=== PATIENT | male | born 1985 | race Caucasian/White ===

== ENCOUNTER 2019-08-01 10:27 | Inpatient (IN) | payer SELFPAY ==
[2019-08-01] MEDS ORDERED: Lorazepam 2 MG/ML VIAL ONE ×4 (10:41→14:40)
[2019-08-01 10:56] LABS: #Lymphocytes 1.5 thou/uL (1.20-3.40); #Monocytes 1.1 thou/uL (0.11-0.59); #Neutrophils 12.6 thou/uL (1.40-6.50); %Basophils 0.2 % (0.0-1.0); %Lymphocytes 9.5 % (21.0-51.0); %Monocytes 7.2 % (0.0-10.0); %Neutrophils 83.1 % (42.0-75.0); Hemoglobin 14.7 g/dL (14.0-18.0); Mean Corpuscular HGB CONC 34.2 g/dL (32.0-36.0); Mean Corpuscular Hemoglobin 32.5 pg (27.0-31.0); Mean Corpuscular Volume 95.1 fL (78.0-98.0); Mean Platelet Volume 7.1 fL (7.4-10.4); Platelet Count 311 thou/uL (130-400); RBC Distribution Width 11.8 % (11.5-14.5); Red Blood Cell (RBC) Count 4.53 mill/uL (4.70-6.10); White Blood Cell (WBC) Count 15.2 thou/uL (4.8-10.8)
[2019-08-01 11:19] LABS: Acetaminophen Less than 6.0 mcg/mL (10.0-30.0); Alcohol Less than 10 mg/dL (Less than 10); Salicylate Less than 8.0 mg/dL (15.0-30.0)
[2019-08-01 11:20] LABS: ALT (SGPT) 64 U/L (8-55); AST (SGOT) 143 U/L (5-34); Albumin 4.8 g/dL (3.5-5.0); Alcohol Less than 10 mg/dL (Less than 10); Alkaline Phosphatase 62 U/L (40-110); Anion Gap 21 mmol/L (10-20); BUN (Urea Nitrogen) 18 mg/dL (8.9-20.6); Bilirubin, Total 3.4 mg/dL (0.2-1.2); Calc. Creatinine Clearance 0 mL/min (70-130); Calcium 9.7 mg/dL (7.8-10.44); Carbon Dioxide 19 mmol/L (22-29); Chloride 101 mmol/L (98-107); Estimated GFR-MDRD Greater than 90; Globulin 2.8 g/dL (2.4-3.5); Glucose 73 mg/dL (70-105); Potassium 3.2 mmol/L (3.5-5.1); Protein, Total 7.6 g/dL (6.0-8.3); Sodium 138 mmol/L (136-145)
[2019-08-01] MEDS ORDERED: Lidocaine 1% w/Epinephrine 1:100K 20 ML VIAL ONE (12:17)
[2019-08-01 12:29] LABS: Bilirubin Negative (Negative); Blood, Urine 2+ (Negative); Clarity Clear (Clear); Glucose, Urine (Dipstick) Normal (Negative); Leukocyte Negative Leu/uL (Negative); Nitrite Negative (Negative); Protein, Urine (Dipstick) 100 mg/dL (Neg-Trace); Squamous Epithelial 0-3 HPF (0-3); Urobilinogen Normal mg/dL (Less than 2); WBC/HPF 0-3 HPF (0-3)
[2019-08-01 12:36] LABS: Amphetamine Detected (NotDetected); Barbiturates Screen Not Detected (NotDetected); Benzodiazepine Screen Not Detected (NotDetected); Cocaine Metabolite Screen Not Detected (NotDetected); Medtox Control Line Valid? VALID (VALID); Medtox Reader # READER 4; Methadone Not Detected (NotDetected); Methamphetamine Detected (NotDetected); Opiate Screen Not Detected (NotDetected); Oxycodone Screen Not Detected (NotDetected); Phencyclidine (PCP) Not Detected (NotDetected); THC/Cannabinoid Screen Not Detected (NotDetected); Tricyclic Screen Not Detected (NotDetected)
[2019-08-01] MEDS ORDERED: Bupivacaine 0.5% 10 ML VIAL ONE ×2 (12:37→13:48)
[2019-08-01 12:38] LABS: Mucous/LPF 1+ LPF (<2+)
[2019-08-01 12:39] LABS: Bacteria/HPF Rare-Few HPF (None Seen)
[2019-08-01] MEDS ORDERED: Adacel (T-DAP) 0.5 ML SYRINGE ONE (13:48)
[2019-08-01] MEDS ORDERED: Acetaminophen 325 MG TAB PO PRN ×2 (13:50→16:40)
[2019-08-01] MEDS ORDERED: Ondansetron ODT 4 MG TAB SL PRN (13:50)
[2019-08-01] MEDS ORDERED: Ondansetron PF 4 MG/2 ML Vial IVP PRN ×2 (13:50→16:40)
[2019-08-01] MEDS ORDERED: Haloperidol Lactate 5 MG/ML VIAL ONE (14:29)
[2019-08-01] MEDS ORDERED: Haloperidol Lactate 5 MG/ML VIAL SLOW IVP SCH (14:30)
[2019-08-01] MEDS ORDERED: Thiamine HCl 200 MG/2 ML VIAL IM SCH (14:45)
--- NOTE | 2019-08-01 14:48 | HP ---
PRIMARY CARE PHYSICIAN: The patient's does not have a primary care physician. CHIEF COMPLAINT: Possible suicide attempt and overdose. HISTORY OF PRESENT ILLNESS: The history of present illness is taken primarily from discussion with the ER physician as well as review of the records as the patient is currently unable to give a coherent history, likely due to his schizophrenia. Mr. Mello is a 34-year-old gentleman who was brought in to the hospital after he was reported to have a suicide attempt by cutting his arm. It is unclear who initiated the call, but apparently he was found in the [place] cold and altered. There was a large laceration on his left arm. When I asked him how he got that, he says "he put it there today," and when asked why he says because he has "a fake ," and then he goes on talking about things that the FBI got involved and they are big and powerful and they have been following him all over the place and that they wanted to put him in a maximum 16. Otherwise, the patient admits to using methamphetamine. He says that he used it a couple of days ago because he had gone outside and there were 100s of people looking at him and he went outside and they took his away. Otherwise, the history is basically incoherent and he has significant flight of ideas. REVIEW OF SYSTEMS: Essentially unobtainable due to the patient's current mental status. PAST MEDICAL HISTORY: He admits to schizophrenia. PAST SURGICAL HISTORY: He just did not answer me. ALLERGIES: UNKNOWN. SOCIAL HISTORY: He denies any smoking. He told me he drinks beers from morning to noon. He had told the ER physician he drinks about 12 to 20 beers a day. He admits to marijuana use and he admits to methamphetamine use. MEDICATIONS: He mentions Lamictal. FAMILY HISTORY: Consisted of heart disease. PHYSICAL EXAMINATION: GENERAL: He is awake and alert. He is a bit agitated, but can easily be calmed down when you distract him. He is well developed and well nourished, a little bit disheveled. He has a large blanket at the bedside in the room. VITAL SIGNS: Blood pressure was 125/85, heart rate is 124, respiratory rate of 21, and temperature is 99.1. HEENT: His pupils are equal, round, and reactive. Extraocular muscles are intact. Sclerae anicteric. Throat, he has dry mucous membranes. NECK: No adenopathy. No bruits. LUNGS: Clear to auscultation. There is no wheezing, no rales, and no rhonchi. CARDIOVASCULAR: Heart rate is tachycardic. There are no murmurs, no clicks, and no rubs. ABDOMEN: Soft, nontender, and nondistended. Positive for bowel sounds. No rebound. No guarding. EXTREMITIES: There is no clubbing or cyanosis and no edema. NEUROLOGIC: The exam is nonfocal. SKIN AND INTEGUMENT: No skin changes. No rash. LABORATORY RESULTS: White blood cell count 15.2, hemoglobin 14.7, hematocrit is 43.1, and platelet count is 311. Sodium 138, potassium 3.2, chloride is 101, CO2 is 19, BUN of 18, creatinine 0.92, and glucose is 73. Total bilirubin is 3.4, AST 143, and ALT is 64. Toxicology, alcohol level was less than 10. He did have methamphetamine and benzos, and this is positive. ASSESSMENT: This is a pleasant 34-year-old gentleman who appears to have schizophrenia, which is currently not very well controlled. I am unable to get any coherent history from him. The other concerning fact is that his heart rate is elevated. He admits to heavy drinking and this could represent alcohol withdrawal. His urine drug screen is positive for methamphetamine. He will be admitted for medical stabilization and treatment for potential alcohol withdrawal with IV fluids with a banana bag and Ativan as needed. He may also need an antipsychotic, such as Haldol or Geodon. The laceration has been sutured in the ER. We will apply an antibiotic ointment to it and he will also be placed on suicide precautions. [facility] will be consulted once he is clinically stable. Job ID: [id number]
[2019-08-01] MEDS: Sodium Chloride 0.9% 1,000 ML IV SCH ×2 (15:57→21:28)
[2019-08-01] MEDS ORDERED: Diazepam 5 MG TAB PO PRN (15:58)
[2019-08-01] MEDS ORDERED: Diazepam 5 MG TAB PO SCH (16:00)
[2019-08-01] MEDS ORDERED: cloNIDine 0.1 MG TAB PO PRN (16:40)
[2019-08-01] MEDS ORDERED: Ondansetron ODT 4 MG TAB PO PRN (16:40)
[2019-08-01] MEDS: Multivitamins, Adult 10 ML, Folic Acid 1 MG, Thiamine HCl 100 MG in Dextrose 5 %-0.45 %... IV SCH (17:45)
[2019-08-01] MEDS: Lorazepam 2 MG/ML VIAL SLOW IVP PRN (21:24)
[2019-08-02] MEDS: Haloperidol Lactate 5 MG/ML VIAL SLOW IVP PRN ×3 (00:38→17:25)
[2019-08-02 03:57] LABS: #Basophils 0.1 thou/uL (0.0-0.2); #Eosinphils 0.1 thou/uL (0.0-0.7); #Lymphocytes 2.5 thou/uL (1.20-3.40); #Monocytes 0.8 thou/uL (0.11-0.59); #Neutrophils 4.4 thou/uL (1.40-6.50); %Basophils 0.8 % (0.0-1.0); %Eosinophils 0.6 % (0.0-10.0); %Lymphocytes 31.8 % (21.0-51.0); %Monocytes 10.4 % (0.0-10.0); %Neutrophils 56.4 % (42.0-75.0); Hemoglobin 12.5 g/dL (14.0-18.0); Mean Corpuscular HGB CONC 35.2 g/dL (32.0-36.0); Mean Corpuscular Hemoglobin 33.9 pg (27.0-31.0); Mean Corpuscular Volume 96.1 fL (78.0-98.0); Mean Platelet Volume 7.4 fL (7.4-10.4); Platelet Count 238 thou/uL (130-400); RBC Distribution Width 11.6 % (11.5-14.5); White Blood Cell (WBC) Count 7.9 thou/uL (4.8-10.8)
[2019-08-02 04:18] LABS: ALT (SGPT) 49 U/L (8-55); AST (SGOT) 100 U/L (5-34); Albumin 3.7 g/dL (3.5-5.0); Alkaline Phosphatase 48 U/L (40-110); Anion Gap 10 mmol/L (10-20); BUN (Urea Nitrogen) 13 mg/dL (8.9-20.6); Bilirubin, Direct 0.3 mg/dL (0.1-0.3); Bilirubin, Total 3.9 mg/dL (0.2-1.2); Calc. Creatinine Clearance 168 mL/min (70-130); Carbon Dioxide 23 mmol/L (22-29); Chloride 108 mmol/L (98-107); Estimated GFR-MDRD Greater than 90; Glucose 83 mg/dL (70-105); Magnesium 2.2 mg/dL (1.6-2.6); Potassium 3.4 mmol/L (3.5-5.1); Protein, Total 5.8 g/dL (6.0-8.3); Sodium 138 mmol/L (136-145)
[2019-08-02] MEDS ORDERED: Potassium Chloride 20 MEQ TAB PO SCH (08:00)
[2019-08-02] MEDS ORDERED: FLU VACC QS2019-20(6MOS UP)/PF 60 MCG/0.5 ML SYRINGE IM ONE (09:00)
[2019-08-02] MEDS ORDERED: Pantoprazole 40 MG VIAL IVP SCH (09:00)
[2019-08-02] MEDS ORDERED: Prevnar 13-Val Conj/PF 0.5 ML SYRINGE IM ONE (09:00)
--- NOTE | 2019-08-02 09:02 | PDOC.HOSPP ---
- Subjective Encounter Date: 08/02/19 Encounter Time: 09:00 Subjective: Mr. Mello was seen today in follow-up of suicide attempt and methamphetamine abuse. He says he feels " anxious". He is laying in the bed with the covers over his face. He starts to breath hard, and shake a little when I began talking to him. Prior to this he was laying calmly. He asked me " what's the next step ?" - Objective Vital Signs & Weight: Vital Signs (12 hours) Temp 08/02/19 07:27 98.7 F 08/02/19 03:38 98.0 F Weight Weight 158 lb 9.6 oz Most Recent Monitor Data Heart Rate from ECG 91 NIBP 99/68 NIBP BP-Mean 78 Respiration from ECG 16 SpO2 98 I&O: 08/01/19 08/02/19 08/03/19 06:59 06:59 06:59 Intake Total 2300 Balance 2300 Result Diagrams: 08/02/19 03:21 08/02/19 03:21 Additional Labs: Accuchecks 08/01/19 10:36 POC Glucose 84 Hospitalist ROS - Medication Medications: Active Medications Generic Name Dose Route Start Last Admin Trade Name Freq PRN Reason Stop Dose Admin Haloperidol Lactate 2 mg 08/01/19 16:40 08/02/19 00:38 Haldol SLOW IVP 2 mg Q6H PRN Administration Agitation Multivitamins 10 ml/ Folic 1,011.2 mls @ 75 mls/hr 08/01/19 17:00 08/01/19 17 :45 Acid 1 mg/ Thiamine HCl 100 mg IV 1,011.2 mls / Dextrose/Sodium Chloride Q24HR CLEM Administration Lorazepam 1 mg 08/01/19 16:40 08/01/19 21:24 Ativan SLOW IVP 1 mg Q4H PRN Administration Anxiety/Agitation - Exam Eye: PERRL Heart: RRR Respiratory: CTAB, no wheezes, no rales, no ronchi, normal chest expansion, no tachypnea, normal percussion Gastrointestinal: soft, non-tender, non-distended, normal bowel sounds, no palpable masses, no hepatomegaly Extremities: no cyanosis, no edema Hosp A/P (1) Suicide attempt Status: Acute (2) Methamphetamine intoxication Code(s): F15.929 - OTHER STIMULANT USE, UNSP WITH INTOXICATION, UNSPECIFIED Status: Acute (3) Methamphetamine abuse Code(s): F15.10 - OTHER STIMULANT ABUSE, UNCOMPLICATED Status: Acute (4) Schizophrenia Code(s): F20.9 - SCHIZOPHRENIA, UNSPECIFIED Status: Acute - Plan * Methamphetamine Intoxication- heis heart rate has improved. It will become elevated when he interacts with people. He does not appear to have alcohol withdrawal symptoms * Will continue IV fluids * Encourage oral intake * Monitor a bit longer * [facility] evaluation soon
[2019-08-02] MEDS: Lorazepam 2 MG/ML VIAL SLOW IVP PRN ×3 (09:04→17:25)
[2019-08-02] MEDS ORDERED: cloNIDine 0.1 MG TAB PO PRN (09:16)
[2019-08-02 15:28] VITALS: TEMP 99.3
[2019-08-02] MEDS: Multivitamins, Adult 10 ML, Folic Acid 1 MG, Thiamine HCl 100 MG in Dextrose 5 %-0.45 %... IV SCH (19:07)
--- NOTE | 2019-08-03 13:23 | DIS ---
DATE OF ADMISSION: 08/01/2019 DATE OF DISCHARGE: 08/02/2019 DISCHARGE DISPOSITION: [facility]. DISCHARGE DIAGNOSES: 1. Suicide attempt. 2. Schizophrenia, decompensated. 3. Methamphetamine abuse. 4. Alcohol abuse. DISCHARGE MEDICATIONS: None. CODE STATUS: Full code. ALLERGIES: NO KNOWN DRUG ALLERGIES. HOSPITAL COURSE: Mr. Mello is a pleasant 34-year-old gentleman who was admitted to the hospital after he was found by police confused and also noted that he had a laceration on his left arm. He was brought into the emergency room, where he was found to be tachycardic and urine drug screen was positive for methamphetamine and amphetamine. The patient's speech was a bit pressured and disorganized. The patient indicated that he did try to harm himself with a laceration on the arm. This was sutured in the ER and the patient was monitored overnight to make sure that he was medically stable. There was some initial concern for alcohol withdrawal, but his symptoms improved dramatically overnight. Therefore, the tachycardia was likely related to the methamphetamine intoxication. He was evaluated by [facility] and it was recommended that he undergo inpatient psychiatric treatment. The patient was agreeable to this and he had an uneventful transfer to the [facility]. Job ID: [id number]
== END 2019-08-02 19:14 | DRG 897 ==
LOC: ERS 10:27 → IMCU/EMU 14:21
PROVIDERS: ADMIT Internal Medicine; ATTEND Internal Medicine
PROC: 0HQCXZZ Repair Left Upper Arm Skin, External Approach (ICD-10-PCS; principal; 2019-08-01)
PROC: HZ2ZZZZ Detoxification Services for Substance Abuse Treatment (ICD-10-PCS; 2019-08-01)
DX: F15.929 Other stimulant use, unspecified with intoxication, unspecified (principal); T14.91XA Suicide attempt, initial encounter; F20.9 Schizophrenia, unspecified; F12.90 Cannabis use, unspecified, uncomplicated; S41.112A Laceration without foreign body of left upper arm, initial encounter; X78.9XXA Intentional self-harm by unspecified sharp object, initial encounter; F10.10 Alcohol abuse, uncomplicated
CPT/HCPCS: 12002; 36415; 36416; 80048; 80053; 80076; 80306; 80307; 81003; 81015; 83735; 85025; 90471; 90715; 93005; 96361; 96374; 96375; 96376; C9113; J1630; J2060; J3411; J3490; J7042

== ENCOUNTER 2023-10-22 08:12 | Inpatient (IN) | payer SELFPAY ==
[2023-10-22] MEDS ORDERED: NOREPINEPHRINE 8 MG/250 ML-D5W 250 ML ONE (08:20)
[2023-10-22] MEDS ORDERED: Fentanyl CADD 100 ML IV SCH (08:30)
[2023-10-22 08:39] LABS: Actual Bicarbonate (HCO3a) 16.1 mEq/L (22-28); Analyzer IN Cardio ER; Base Excess (BEa) -10.5 mEq/L (-2.0 to +3.0); CO2 Tension 38.4 mmHg (35.0-45.0); Calcium, Ionized (arterial) 1.17 mmol/L (1.12-1.30); Carboxyhemoglobin (COHb) 0.3 gm% (0.0-3.0); Hematocrit-ABG 47 % (42.0-52.0); Hemoglobin (Hb) 16.1 g/dL (14.0-18.0); O2 Tension (PaO2), arterial 157.6 mmHg (80.0-100.0); Potassium - ABG Lab 4.13 mmol/L (3.70-5.30); Puncture Site RRA; pH, Arterial 7.241 (7.35-7.45)
[2023-10-22] MEDS ORDERED: Sodium Bicarb 50 MEQ/50 ML Abboject 8.4% SYRINGE ONE (08:54)
[2023-10-22] MEDS ORDERED: Ipratropium/Albuterol 3 ML NEB NEB PRN (09:15)
[2023-10-22] MEDS ORDERED: Acetaminophen 650 MG Suppository PR PRN (09:15)
[2023-10-22] MEDS ORDERED: Ventilator Sedation Protocol 1 EACH FS SCH (09:15)
[2023-10-22] MEDS ORDERED: Midazolam HCl 2 mg/2 ml Vial SLOW IVP PRN (09:31)
[2023-10-22 09:44] LABS: Hematocrit 44.1 % (42.0-52.0); Mean Corpuscular Hemoglobin 32.9 pg (27.0-31.0); Mean Corpuscular Volume 96.7 fL (78.0-98.0); Mean Platelet Volume 10.7 fL (7.4-10.4); Platelet Count 122 10x3/uL (130-400); RBC Distribution Width 14.2 % (11.5-14.5); Red Blood Cell (RBC) Count 4.56 mill/uL (4.70-6.10)
[2023-10-22] MEDS ORDERED: DISCONTINUE PREVIOUS NARCOTIC PAIN MEDICATIONS AND BENZODIAZEPINES FS SCH (09:45)
[2023-10-22] MEDS ORDERED: Propofol BOLUS 1,000 MG/100 ML VIAL IV PRN (09:45)
[2023-10-22] MEDS ORDERED: Morphine 2 MG/ML VIAL SLOW IVP PRN (09:45)
[2023-10-22 09:55] LABS: ALT (SGPT) 156 U/L (8-55); AST (SGOT) 337 U/L (5-34); Albumin 3.2 g/dL (3.5-5.0); Alkaline Phosphatase 54 U/L (40-110); Anion Gap 15 mmol/L (10-20); BUN (Urea Nitrogen) 9 mg/dL (8.9-20.6); Bilirubin, Total 1.9 mg/dL (0.2-1.2); Calc. Creatinine Clearance 0 mL/min (70-130); Calcium 7.4 mg/dL (7.8-10.44); Carbon Dioxide 14 mmol/L (22-29); Chloride 120 mmol/L (98-107); Estimated GFR 58; Globulin 2.7 g/dL (2.4-3.5); Glucose 285 mg/dL (70-105); Potassium 4.1 mmol/L (3.5-5.1); Protein, Total 5.9 g/dL (6.0-8.3); Sodium 145 mmol/L (136-145)
[2023-10-22 10:02] LABS: Bacteria/HPF None Seen HPF (None Seen); Bilirubin Negative (Negative); CAUTI Indications for Culture Alt mental st,lethar; Glucose, Urine (Dipstick) Normal (Negative); Ketone, Urine Negative (Negative); Leukocyte Negative Leu/uL (Negative); Nitrite Negative (Negative); Protein, Urine (Dipstick) 100 mg/dL (Neg-Trace); Squamous Epithelial None Seen HPF (0-3); Urobilinogen Normal mg/dL (Less than 2); pH, Urine 5.5 (5.0-9.0)
[2023-10-22 10:05] LABS: CK (CPK) 10293 U/L (30-200)
[2023-10-22 10:05] LABS: Blood, Urine 3+ (Negative); Clarity Cloudy (Clear)
[2023-10-22 10:06] LABS: Urine Culture Reflex Yes Yes
[2023-10-22] MEDS: Dextrose 5 %-0.45 % NaCl 1,000 ML IV SCH (10:14)
[2023-10-22 10:31] LABS: Anisocytosis MODERATE=16-30 cells HPF (0-5); Band 6 % (5-11); Burr Cells SLIGHT = 2-5 cells HPF (0-1); Eosinophils 1 % (0-10); Large Platelets 0.9 % (0-5); Lymphocytes 13 % (21-51); Macrocytosis SLIGHT = 6-15 cells HPF (0-5); Metamyelocyte 2 % (0-0); Monocytes 18 % (0-10); Myelocyte 1 % (0-0); Neutrophil 57 % (42-75); Nucleated RBC (Manual Ct) 12 % (0); Platelet Adequacy Comment Platelets Decreased; Polychromasia MODERATE = 3-4 cells HPF (0-2); Reactive Lymphocytes 1 % (0-10)
[2023-10-22 10:43] LABS: Critical Call Chem Troponin I NUR.KR7 @1042; Troponin I 3.969 ng/mL (< 0.028)
[2023-10-22] MEDS ORDERED: Glucagon 1 MG/ML KIT IM PRN (10:44)
[2023-10-22] MEDS ORDERED: Insulin Regular, Human 100 UNIT/ML 10 ML VIAL SC PRN (10:44)
[2023-10-22] MEDS ORDERED: Dextrose 5% in Water 1,000 ML IV PRN (10:44)
[2023-10-22 10:46] LABS: Prothrombin Time 22.8 sec (12.0-14.7)
[2023-10-22 10:47] LABS: PTT 43.4 sec (22.9-36.1)
[2023-10-22] MEDS: Sodium Chloride 0.45% 1,000 ML IV SCH (12:00)
[2023-10-22] MEDS: Sodium Bicarb 50 mEq/50 ML VIAL IVP SCH ×2 (12:10→16:31)
[2023-10-22] MEDS ORDERED: Midazolam In 0.9 % NaCl/PF 100 ML IVPB SCH (12:15)
[2023-10-22 12:26] LABS: Lactic Acid 3.5 mmol/L (0.5-2.2)
[2023-10-22 12:43] LABS: Troponin I 5.495 ng/mL (< 0.028)
[2023-10-22 13:51] VITALS: BMI 28.8
[2023-10-22 14:16] LABS: Anion Gap 17 mmol/L (10-20); BUN (Urea Nitrogen) 13 mg/dL (8.9-20.6); Calc. Creatinine Clearance 83 mL/min (70-130); Calcium 7.6 mg/dL (7.8-10.44); Carbon Dioxide 16 mmol/L (22-29); Chloride 119 mmol/L (98-107); Estimated GFR 65; Glucose 186 mg/dL (70-105); Potassium 2.3 mmol/L (3.5-5.1); Sodium 150 mmol/L (136-145)
[2023-10-22] MEDS ORDERED: Electrolyte Replacement Protocol 1 EACH FS SCH (14:27)
[2023-10-22] MEDS: Enoxaparin 80 MG (0.8 mL) SYRINGE SC SCH ×2 (14:33→20:33)
[2023-10-22] MEDS: Potassium Chloride 40 MEQ in Premix 1 BAG IVPB SCH (15:11)
[2023-10-22] MEDS: 1/2 NS w/Potassium 20 mEq 1,000 ML IV SCH (15:50)
[2023-10-22] MEDS: Lactated Ringer's 500 ML IV SCH (16:31)
[2023-10-22 18:56] LABS: Critical Call Chem Troponin I NUR.CLW1 @1856; Troponin I 5.586 ng/mL (< 0.028)
[2023-10-22] MEDS: Famotidine/PF 20 mg/2ml Vial SLOW IVP SCH (20:33)
[2023-10-22 20:38] LABS: Lactic Acid 5.8 mmol/L (0.5-2.2)
[2023-10-22 20:43] LABS: Anion Gap 22 mmol/L (10-20); BUN (Urea Nitrogen) 14 mg/dL (8.9-20.6); Calc. Creatinine Clearance 78 mL/min (70-130); Carbon Dioxide 13 mmol/L (22-29); Chloride 118 mmol/L (98-107); Estimated GFR 60; Glucose 103 mg/dL (70-105); Potassium 4.4 mmol/L (3.5-5.1); Sodium 149 mmol/L (136-145)
[2023-10-22] MEDS: Lactated Ringer's 1,000 ML IV SCH (20:58)
[2023-10-22] MEDS: Sodium Bicarbonate 150 MEQ in Dextrose 5% in Water 1,000 ML IV SCH (21:15)
[2023-10-22] MEDS: Lorazepam 2 MG/ML VIAL SLOW IVP PRN (21:27)
[2023-10-22] MEDS: Propofol 1,000 MG/100 ML VIAL IV PRN (21:50)
[2023-10-23 00:19] LABS: Lactic Acid 4.7 mmol/L (0.5-2.2)
[2023-10-23] MEDS: Lactated Ringer's 500 ML IV SCH (01:04)
[2023-10-23 01:42] LABS: Anion Gap 21 mmol/L (10-20); BUN (Urea Nitrogen) 16 mg/dL (8.9-20.6); Calc. Creatinine Clearance 84 mL/min (70-130); Calcium 7.7 mg/dL (7.8-10.44); Carbon Dioxide 14 mmol/L (22-29); Chloride 117 mmol/L (98-107); Estimated GFR 65; Glucose 122 mg/dL (70-105); Sodium 149 mmol/L (136-145)
[2023-10-23] MEDS: Potassium Chloride 40 MEQ in Premix 1 BAG IVPB SCH ×2 (02:49→17:08)
[2023-10-23] MEDS: Potassium Bicarbonate/Cit Ac 20 MEQ TAB PER TUBE SCH (02:50)
[2023-10-23] MEDS: Sodium Bicarbonate 150 MEQ in Dextrose 5% in Water 1,000 ML IV SCH (02:55)
[2023-10-23] MEDS ORDERED: Potassium Chloride 20 MEQ in Premix 1 BAG IVPB SCH (03:00)
[2023-10-23 05:54] LABS: Hemoglobin 17.9 g/dL (14.0-18.0); Mean Corpuscular HGB CONC 35.1 g/dL (32.0-36.0); Mean Corpuscular Hemoglobin 32.6 pg (27.0-31.0); Mean Corpuscular Volume 92.9 fL (78.0-98.0); Mean Platelet Volume 10.7 fL (7.4-10.4); RBC Distribution Width 14.6 % (11.5-14.5); Red Blood Cell (RBC) Count 5.49 mill/uL (4.70-6.10)
[2023-10-23 06:10] LABS: Lactic Acid 3.3 mmol/L (0.5-2.2)
[2023-10-23 06:20] LABS: Band 10 % (5-11); Lymphocytes 6 % (21-51); Metamyelocyte 2 % (0-0); Monocytes 3 % (0-10); Neutrophil 79 % (42-75); Nucleated RBC (Manual Ct) 6 % (0); Platelet Adequacy Comment Significant Decrease; Polychromasia SLIGHT = 2-3 cells HPF (0-2); Smudge Cells 9.1 %
[2023-10-23 06:27] LABS: Platelet Count 23 10x3/uL (130-400)
[2023-10-23 06:40] LABS: ALT (SGPT) 1049 U/L (8-55); AST (SGOT) 1767 U/L (5-34); Albumin 2.7 g/dL (3.5-5.0); Alkaline Phosphatase 59 U/L (40-110); Anion Gap 16 mmol/L (10-20); BUN (Urea Nitrogen) 20 mg/dL (8.9-20.6); Bilirubin, Total 4.1 mg/dL (0.2-1.2); Calc. Creatinine Clearance 98 mL/min (70-130); Calcium 6.7 mg/dL (7.8-10.44); Carbon Dioxide 22 mmol/L (22-29); Chloride 112 mmol/L (98-107); Estimated GFR 71; Globulin 2.3 g/dL (2.4-3.5); Glucose 159 mg/dL (70-105); Potassium 3.1 mmol/L (3.5-5.1); Sodium 147 mmol/L (136-145)
[2023-10-23 07:21] LABS: Actual Bicarbonate (HCO3a) 23.7 mEq/L (22-28); Base Excess (BEa) 0.7 mEq/L (-2.0 to +3.0); CO2 Tension 34.2 mmHg (35.0-45.0); Calcium, Ionized (arterial) 0.98 mmol/L (1.12-1.30); Carboxyhemoglobin (COHb) 0.3 gm% (0.0-3.0); Hematocrit-ABG 56 % (42.0-52.0); Hemoglobin (Hb) 19.2 g/dL (14.0-18.0); O2 Tension (PaO2), arterial 71.3 mmHg (80.0-100.0); Potassium - ABG Lab 3.14 mmol/L (3.70-5.30); pH, Arterial 7.459 (7.35-7.45)
[2023-10-23 07:23] LABS: Puncture Site RRA
[2023-10-23 07:30] LABS: HBCM Index 0.09 S/CO (0-0.79); HBsAg Index 0.22 S/CO (0-0.99); Hep A IgM AB NONREACTIVE (NonReactive); Hep A IgM S/CO 0.17 S/CO (0-0.79); Hep B Surf Ag NONREACTIVE S/CO (NonReactive); Hep C IgG Ab NONREACTIVE S/CO (NonReactive); Hep C Index 0.08 S/CO (0-0.79); Hepatitis B Core IgM Abs NONREACTIVE S/CO (NonReactive)
[2023-10-23 07:31] LABS: INR-International Normal Ratio 3.7; Prothrombin Time 37.3 sec (12.0-14.7)
[2023-10-23 07:32] LABS: PTT 46.6 sec (22.9-36.1)
[2023-10-23 07:35] LABS: Platelet Count 24 10x3/uL (130-400)
[2023-10-23 07:40] LABS: Hematocrit 51.9 % (42.0-52.0); Hemoglobin 18.3 g/dL (14.0-18.0); Mean Corpuscular HGB CONC 35.3 g/dL (32.0-36.0); Mean Corpuscular Hemoglobin 33.5 pg (27.0-31.0); Mean Corpuscular Volume 95.1 fL (78.0-98.0); Mean Platelet Volume 12.1 fL (7.4-10.4); Platelet Count 22 10x3/uL (130-400); RBC Distribution Width 14.7 % (11.5-14.5); Red Blood Cell (RBC) Count 5.46 mill/uL (4.70-6.10)
[2023-10-23] MEDS: Potassium Chloride 20 MEQ in Premix 1 BAG IVPB SCH (07:56)
[2023-10-23 08:04] LABS: Fibrinogen 64 mg/dL (253-463)
[2023-10-23 08:05] LABS: D-Dimer Test Greater than 20.00 mcg/mL (0.27-0.43)
[2023-10-23 08:07] LABS: Anisocytosis MODERATE=16-30 cells HPF (0-5); Band 19 % (5-11); Lymphocytes 4 % (21-51); Macrocytosis MODERATE=16-30 cells HPF (0-5); Monocytes 2 % (0-10); Neutrophil 75 % (42-75); Nucleated RBC (Manual Ct) 4 % (0); Platelet Adequacy Comment Significant Decrease; Reactive Lymphocytes 1 % (0-10)
[2023-10-23] MEDS: Aspirin 300 MG Suppository PR SCH (08:59)
[2023-10-23 09:22] LABS: CK (CPK) 38219 U/L (30-200)
[2023-10-23 09:24] LABS: ALT (SGPT) 1412 U/L (8-55); AST (SGOT) 2247 U/L (5-34); Albumin 2.7 g/dL (3.5-5.0); Alkaline Phosphatase 62 U/L (40-110); Anion Gap 19 mmol/L (10-20); BUN (Urea Nitrogen) 20 mg/dL (8.9-20.6); Bilirubin, Total 4.3 mg/dL (0.2-1.2); Calc. Creatinine Clearance 100 mL/min (70-130); Calcium 6.5 mg/dL (7.8-10.44); Carbon Dioxide 18 mmol/L (22-29); Chloride 113 mmol/L (98-107); Estimated GFR 73; Globulin 2.2 g/dL (2.4-3.5); Glucose 149 mg/dL (70-105); Potassium 3.3 mmol/L (3.5-5.1); Protein, Total 4.9 g/dL (6.0-8.3); Sodium 147 mmol/L (136-145)
[2023-10-23] MEDS: Sodium Chloride 0.45% 1,000 ML IV SCH (10:59)
[2023-10-23] MEDS: Vecuronium 10 MG VIAL IV PRN (11:02)
[2023-10-23 14:32] LABS: Hematocrit 49.6 % (42.0-52.0); Hemoglobin 17.4 g/dL (14.0-18.0)
[2023-10-23] MEDS: Dextrose 50% Abboject 50 ML SYRINGE SLOW IVP PRN (18:10)
[2023-10-23] MEDS: D5 1/2 NS w/20 mEq KCL 1,000 ML IV SCH (18:41)
[2023-10-23 21:57] LABS: Actual Bicarbonate (HCO3a) 21.3 mEq/L (22-28); Base Excess (BEa) -1.3 mEq/L (-2.0 to +3.0); Calcium, Ionized (arterial) 0.91 mmol/L (1.12-1.30); Carboxyhemoglobin (COHb) 0.9 gm% (0.0-3.0); Hematocrit-ABG 51 % (42.0-52.0); Hemoglobin (Hb) 17.3 g/dL (14.0-18.0); Potassium - ABG Lab 3.21 mmol/L (3.70-5.30); pH, Arterial 7.455 (7.35-7.45)
[2023-10-23 21:58] LABS: O2 Tension (PaO2), arterial 44.5 mmHg (80.0-100.0)
[2023-10-23 21:59] LABS: Puncture Site LBA
[2023-10-23 22:44] LABS: Hematocrit 48.8 % (42.0-52.0); Hemoglobin 16.8 g/dL (14.0-18.0)
[2023-10-23] MEDS: Sterile Water 10 ML ONE (22:58)
[2023-10-24] MEDS: Vecuronium 10 MG VIAL IV PRN (00:46)
[2023-10-24] MEDS: Sterile Water 10 ML ONE ×2 (00:52→08:03)
[2023-10-24] MEDS: Albumin 25% 25 GM (100 mL) BOT IVPB SCH (01:47)
[2023-10-24 02:09] LABS: Actual Bicarbonate (HCO3a) 22.2 mEq/L (22-28); Base Excess (BEa) -3.7 mEq/L (-2.0 to +3.0); CO2 Tension 43.1 mmHg (35.0-45.0); Calcium, Ionized (arterial) 0.91 mmol/L (1.12-1.30); Carboxyhemoglobin (COHb) 0.3 gm% (0.0-3.0); Hematocrit-ABG 53 % (42.0-52.0); O2 Tension (PaO2), arterial 65.4 mmHg (80.0-100.0); Potassium - ABG Lab 3.56 mmol/L (3.70-5.30)
[2023-10-24 02:10] LABS: ALV-art Gradient 593.725 mmHg (0-20); Puncture Site LBA
[2023-10-24] MEDS: Calcium Chloride 13.6 MEQ in Sodium Chloride 0.9% 100 ML IVPB SCH (02:49)
[2023-10-24] MEDS: Sodium Bicarb 50 mEq/50 ML VIAL IVP SCH (02:51)
[2023-10-24] MEDS: Magnesium Sulfate In Water 4 GM in Premix 1 BAG IVPB SCH (06:00)
[2023-10-24] MEDS ORDERED: Sodium Bicarb 50 MEQ/50 ML Abboject 8.4% SYRINGE ONE (07:30)
[2023-10-24] MEDS: Sodium Bicarb 50 MEQ/50 ML Abboject 8.4% SYRINGE IVP SCH ×3 (07:30→08:37)
[2023-10-24] MEDS ORDERED: EPINEPHrine 1 MG/10 ML Abboject SYRINGE ONE (07:30)
[2023-10-24] MEDS: Phenylephrine 40 MG in Sodium Chloride 0.9% 250 ML 250 ML IVPB SCH (07:40)
[2023-10-24 07:45] LABS: AST (SGOT) Greater than 4202 U/L (5-34); Albumin 2.5 g/dL (3.5-5.0); Alkaline Phosphatase 56 U/L (40-110); Anion Gap 18 mmol/L (10-20); BUN (Urea Nitrogen) 24 mg/dL (8.9-20.6); Bilirubin, Total 5.2 mg/dL (0.2-1.2); Calc. Creatinine Clearance 94 mL/min (70-130); Calcium 6.1 mg/dL (7.8-10.44); Carbon Dioxide 20 mmol/L (22-29); Chloride 111 mmol/L (98-107); Estimated GFR 68; Globulin 2.2 g/dL (2.4-3.5); Glucose 100 mg/dL (70-105); Magnesium 1.3 mg/dL (1.6-2.6); Potassium 3.5 mmol/L (3.5-5.1); Protein, Total 4.7 g/dL (6.0-8.3); Sodium 145 mmol/L (136-145)
[2023-10-24 07:51] LABS: Lactic Acid 6.3 mmol/L (0.5-2.2)
[2023-10-24] MEDS: EPINEPHrine 4 MG in Dextrose 5% in Water 250 ML IVP SCH (07:54)
[2023-10-24] MEDS: Potassium Chloride 20 MEQ in Premix 1 BAG IVPB SCH (07:56)
[2023-10-24] MEDS: NOREPINEPHRINE 8 MG/250 ML-D5W 250 ML IVPB PRN (08:00)
[2023-10-24] MEDS: EPINEPHrine 1 MG/10 ML Abboject SYRINGE IVP SCH ×3 (08:17→08:37)
[2023-10-24 08:28] LABS: Actual Bicarbonate (HCO3a) 19.5 mEq/L (22-28); Base Excess (BEa) -8.2 mEq/L (-2.0 to +3.0); CO2 Tension 47.8 mmHg (35.0-45.0); Calcium, Ionized (arterial) 1.04 mmol/L (1.12-1.30); Carboxyhemoglobin (COHb) 0.4 gm% (0.0-3.0); Hematocrit-ABG 48 % (42.0-52.0); Hemoglobin (Hb) 16.4 g/dL (14.0-18.0); O2 Tension (PaO2), arterial 45.2 mmHg (80.0-100.0); Potassium - ABG Lab 3.39 mmol/L (3.70-5.30); Puncture Site Arterial Line; pH, Arterial 7.229 (7.35-7.45)
[2023-10-24 08:37] LABS: ALT (SGPT) 3734 U/L (8-55)
[2023-10-24] MEDS: Hydrocortisone Sod Succ/PF 100 mg/2 ml Vial IVP SCH (08:54)
[2023-10-24] MEDS: Hydrocortisone Sod Succ/PF 100 mg/2 ml Vial ONE (08:55)
[2023-10-24 09:44] LABS: #Basophils 0.02 10x3/uL (0.0-0.2); #Monocytes 0.07 10x3/uL (0.11-0.59); #Neutrophils 4.79 10x3/uL (1.40-6.50); %Basophils 0.4 % (0.0-1.0); %Lymphocytes 4.8 % (21.0-51.0); %Monocytes 1.4 % (0.0-10.0); %Neutrophils 92.6 % (42.0-75.0); Hematocrit 43.6 % (42.0-52.0); Hemoglobin 15.5 g/dL (14.0-18.0); Mean Corpuscular HGB CONC 35.6 g/dL (32.0-36.0); Mean Corpuscular Hemoglobin 33.9 pg (27.0-31.0); Mean Corpuscular Volume 95.4 fL (78.0-98.0); Mean Platelet Volume 14.1 fL (7.4-10.4); Platelet Count 45 10x3/uL (130-400); RBC Distribution Width 15.5 % (11.5-14.5); Red Blood Cell (RBC) Count 4.57 mill/uL (4.70-6.10); White Blood Cell (WBC) Count 5.17 10x3/uL (4.8-10.8)
[2023-10-24] MEDS: Phenylephrine 40 MG/NS 250 ML 40 MG in Premix 1 BAG IVPB SCH (09:49)
[2023-10-24] MEDS: Phenylephrine 10 MG/ML VIAL ONE (09:50)
[2023-10-24] MEDS: Sodium Bicarbonate 150 MEQ in Dextrose 5% in Water 1,000 ML IV SCH (09:52)
[2023-10-24] MEDS: Vasopressin 20 UNITS, Admixture Fee 1 EACH in Sodium Chloride 0.9% 50 ML IV SCH (10:00)
[2023-10-24 10:26] VITALS: BP 116/43
[2023-10-24 11:41] VITALS: BMI 31.9
[2023-10-24 13:07] VITALS: TEMP 97.5
== END 2023-10-24 13:39 | disposition expired | DRG 917 ==
LOC: ERS 08:12 → ERHOLD 09:09 → CCU 11:32
PROVIDERS: ADMIT Family Medicine; ATTEND Family Medicine
PROC: 02HV33Z Insertion of Infusion Device into Superior Vena Cava, Percutaneous Approach (ICD-10-PCS; principal; 2023-10-22)
PROC: 0DH67UZ Insertion of Feeding Device into Stomach, Via Natural or Artificial Opening (ICD-10-PCS; 2023-10-22)
PROC: 4A133R1 Monitoring of Arterial Saturation, Peripheral, Percutaneous Approach (ICD-10-PCS; 2023-10-22)
PROC: 3E043XZ Introduction of Vasopressor into Central Vein, Percutaneous Approach (ICD-10-PCS; 2023-10-22)
PROC: 5A1945Z Respiratory Ventilation, 24-96 Consecutive Hours (ICD-10-PCS; 2023-10-22)
PROC: 0BH17EZ Insertion of Endotracheal Airway into Trachea, Via Natural or Artificial Opening (ICD-10-PCS; 2023-10-22)
PROC: 30233M1 Transfusion of Nonautologous Plasma Cryoprecipitate into Peripheral Vein, Percutaneous Approach (ICD-10-PCS; 2023-10-23)
PROC: 04HY32Z Insertion of Monitoring Device into Lower Artery, Percutaneous Approach (ICD-10-PCS; 2023-10-24)
PROC: 4A133B1 Monitoring of Arterial Pressure, Peripheral, Percutaneous Approach (ICD-10-PCS; 2023-10-24)
PROC: 4A133J1 Monitoring of Arterial Pulse, Peripheral, Percutaneous Approach (ICD-10-PCS; 2023-10-24)
PROC: 30233J1 Transfusion of Nonautologous Serum Albumin into Peripheral Vein, Percutaneous Approach (ICD-10-PCS; 2023-10-24)
DX: T43.652A Poisoning by methamphetamines intentional self-harm, initial encounter (principal); D65 Disseminated intravascular coagulation [defibrination syndrome]; I21.A1 Myocardial infarction type 2; J96.01 Acute respiratory failure with hypoxia; Z66 Do not resuscitate; E87.20 Acidosis, unspecified; E87.0 Hyperosmolality and hypernatremia; M62.82 Rhabdomyolysis; D68.9 Coagulation defect, unspecified; N17.9 Acute kidney failure, unspecified; R50.2 Drug induced fever; F17.290 Nicotine dependence, other tobacco product, uncomplicated; I95.9 Hypotension, unspecified; D72.829 Elevated white blood cell count, unspecified; R74.01 Elevation of levels of liver transaminase levels; F15.10 Other stimulant abuse, uncomplicated; F20.9 Schizophrenia, unspecified; F17.210 Nicotine dependence, cigarettes, uncomplicated; Z79.82 Long term (current) use of aspirin; Z79.899 Other long term (current) drug therapy; K71.10 Toxic liver disease with hepatic necrosis, without coma; Z78.1 Physical restraint status
CPT/HCPCS: 36415; 36416; 36430; 36556; 36600; 70450; 71045; 80053; 80074; 82533; 82550; 82805; 83010; 83605; 83615; 83735; 84439; 84443; 84481; 85025; 85046; 85049; 85300; 85362; 85384; 85610; 85730; 86850; 86900; 86901; 87086; 93005; 93306; 94003; 94760; 96365; 96366; 96375; 99292; J0171; J1650; J1720; J2060; J2250; J2371; J2704; J3010; J3475; J3480; J3490; J7042; J7050; J7070; J7120; J7999; P9012; P9047; S0028